=== PATIENT | female | born 1935 | race Caucasian/White ===

== ENCOUNTER → 2019-01-19 12:27 | Outpatient (CLI) | payer MEDICARE, OTHER, SELFPAY ==
--- NOTE | 2019-01-19 | DI.CT.S_ITS ---
PROCEDURE: CT UE LT WO CON INDICATIONS: LEFT SHOULDER OSTEOARTHRITES TECHNIQUE: Noncontrast 1-1.5 mm thick sections acquired from the acromioclavicular joint to the inferior scapula, with coronal and sagittal reformatting. COMPARISON: [facility], , SHOULDER MINIMUM 2 VIEW LEFT, 05/19/2017, 8:57. FINDINGS: Image quality: Diagnostic. Bones: No acute fracture, dislocation, or suspicious osseous lesion is evident involving the osseous structures of the left shoulder. There are severe degenerative changes of the glenohumeral joint with prominent joint space narrowing, subchondral sclerosis, subchondral cystic change, and bony remodeling, and prominent marginal osteophytes. There may be multiple loose intra-articular joint bodies. There moderate degenerative changes of the acromion clavicular joint. There likely is a glenohumeral joint effusion. The remainder of the imaged osseous structures of the included portions of the chest are age-appropriate. No displaced fractures or suspicious osseous lesions are evident. Soft tissues: No soft tissue masses or drainable fluid collections are identified. There is mild diffuse atrophy involving the left shoulder muscles. No axillary adenopathy is identified. The included portions of the chest demonstrate mild scarring within the lung apices. There appear to be multiple small mediastinal lymph nodes. No focal pulmonary consolidation is seen within the imaged upper lungs. IMPRESSION: 1. Severe degenerative changes of the left glenohumeral joint. No fractures. 2. Moderate degenerative changes of the left acromioclavicular joint. Dictated by: Elmer Butcher M.D. on 01/19/2019 at 15:05 Approved by: Elmer Butcher M.D. on 01/19/2019 at 15:17
== END ==
PROVIDERS: PCP Student in an Organized Health Care Education/Training Program; Visit Provider Orthopaedic Surgery
DX: M19.012 Primary osteoarthritis, left shoulder (principal)
CPT/HCPCS: 73200

== ENCOUNTER 2019-04-27 05:54 | Inpatient (IN) | payer MEDICARE, OTHER, SELFPAY ==
[2019-04-13 08:48] VITALS: BMI 21.9
[2019-04-27] VITALS (12 sets, daily range): BP systolic 117–157; BP diastolic 55–87; PULSE 63–98; RESP 12–20; TEMP 35.9–36.3; O2SAT 94–98; BMI 21.9
--- NOTE | 2019-04-27 06:00 | DI.RAD.S_ITS ---
PROCEDURE: XR SHOULDER LT 1V INDICATIONS: post op TECHNIQUE: One view of the shoulder was acquired. COMPARISON: [facility], , SHOULDER MINIMUM 2 VIEW LEFT, 05/19/2017, 8:57. FINDINGS: Expected immediate postoperative appearance, post left shoulder arthroplasty. IMPRESSION: Expected immediate postoperative appearance, post left shoulder arthroplasty. Dictated by: Lester Ortiz M.D. on 04/27/2019 at 10:43 Approved by: Lester Ortiz M.D. on 04/27/2019 at 10:44
[2019-04-27] MEDS: ACETAMINOPHEN 325 MG TABLET 975 MG PO ×3 (06:50→21:52)
[2019-04-27] MEDS: PREGABALIN 75 MG CAPSULE PO (06:50)
[2019-04-27] MEDS: CELECOXIB 200 MG CAPSULE PO (06:51)
[2019-04-27] MEDS: LACTATED RINGERS 1,000 ML 42 ML IV ×2 (07:00→09:45)
[2019-04-27] MEDS: MIDAZOLAM 2 MG/2 ML VIAL IV (07:29)
[2019-04-27] MEDS: fentaNYL 100 MCG/2 ML INJ IV (07:30)
--- NOTE | 2019-04-27 07:41 | SUR.PREOP ---
Block start time [0730] . Monitoring initiated and maintained throughout procedure. Oxygen and medications given per anesthesiologist instructions. Patient remained stable throughout procedure, no adverse reactions noted. Block end time [0739].
--- NOTE | 2019-04-27 07:51 | PM.PREOP ---
Pre-operative Note Interval Note History & Physical reviewed/Exam performed by Physician: Yes Changes to H&P: No
[2019-04-27] MEDS: CEFAZOLIN 2 GM/100 ML FROZ.PIGGY IV (07:55)
--- NOTE | 2019-04-27 08:32 | SUR.OPER ---
Beach chair with Linda/Theron shoulder positioner. Lower body on padded OR bed. Head in foam padded head cradle, secured with straps. Non-operative arm secured <90 degrees abduction. Pillow under knees. Safety belt at thigh. Cloth tape over blanket over lower legs.
[2019-04-27] MEDS: TRANEXAMIC ACID 1,000 MG VIAL 1000 MG INJ ×2 (08:37→09:26)
[2019-04-27] MEDS: BUPIVACAINE 0.5% W/ EPI (PF) VIAL 30 ML INJ (08:37)
[2019-04-27] MEDS: THROMBIN (RECOMBINANT) 5,000 UNIT VIAL 5000 UNIT TOP (08:37)
--- NOTE | 2019-04-27 10:08 | PM.OP.1 ---
Operative Date/Time/Diagnoses Date of procedure: 04/27/19 Time of procedure: 09:50 Pre-op diagnosis: Left shoulder osteoarthritis Post-op diagnosis: same Procedure & Clinicians Procedure: Left total shoulder replacement Same procedure as scheduled: Yes Indications: The patient has had progressively worsening left shoulder pain with radiographic changes consistent with arthritis. Non-operative management has failed and the patient has requested total shoulder replacement. The risks, benefits and alternatives to surgery were discussed with the patient prior to proceeding. Risks discussed included, but were not limited to, failure to relieve pain, stiffness, infection, nerve damage, deep venous thrombosis, pulmonary embolism, stroke, coma, heart attack, permanent paralysis and , as well as the potential need for eventual revision of the prosthetic. Surgeon: Maxwell Cortés Data Collection Interviewer: Doug Jaramillo Click Yes if Unassisted: No Anesthesia Type: General, Peripheral nerve block and Local Operative Notes Findings: Severe osteoarthritis of the left shoulder with flattening of the humeral head and a large inferior osteophyte on the humerus. Glenoid wear was fairly concentric. Closure Type: primary Specimen(s): none sent Prosthetic devices, grafts, tissues, transplants, or devices: Implants used in this procedure were manufactured by the [employer] and included an Altivate short stemmed total shoulder system with a size 42 mm pegged all polyethylene E plus glenoid, a 12 mm short stem, a neutral neck and a 42 mm x 16 mm offset humeral head. Applied: drain(s) and implant(s) Estimated Blood Loss (mL): 200 Blood products transfused: none Procedure in detail: The patient was seen in the pre-operative area, where the patient identified the left shoulder as the operative site and this was marked with my initials. The patient received pre-operative antibiotics, underwent an interscalene block, and was taken to the operating room and placed on the operative table in the supine position. After satisfactory anesthesia, a full ?time out? was performed. The patient was repositioned in the ?beach chair? position using a dedicated positioner. All pressure points were well padded, and the knees were slightly bent to prevent tension on the sciatic nerves. The left arm was prepared from the fingers to the base of the neck with ChloroPrep in the usual fashion and draped through sterile drapes. An approximately 12 cm incision was created, starting at the clavicle above the coracoid process and extended towards the deltoid insertion. The deltopectoral interval was used to access the shoulder. The cephalic vein was taken medially. A self retaining retractor was placed. The upper centimeter of the pectoralis major tendon was released. The ?three sisters? were identified and cauterized. The axillary nerve was palpated and protected throughout the case. The biceps was released from its groove and tenodesed over the top of the pectoralis major tendon. The subscapularis was released from the lesser tuberosity with a subscapularis peel and tagged for later repair. The shoulder was dislocated and a cutting guide was used for the proximal humeral osteotomy in 30 degrees of retroversion. A starter Reamer was used followed by the cylindrical reamers. This continued in larger sizes in till cortical bite was achieved. Sequential broaching was then performed until a line to line fit with the Reamer occurred. A proximal humeral protector was then placed. We then removed the self-retaining retractor and placed retractors to access the glenoid. The subscapularis was released with a ?360 degree release? with care being taken to protect the axillary nerve with the inferior portion of this procedure. The remnant of labrum and biceps stump were removed. The appropriate size reamer was chosen with the glenoid sizer, and the guide pin placed. The glenoid was appropriately reamed. The guide for the peripheral holes was used and the center hole enlarged. The trial glenoid was placed with good stability. We then cemented the final implant into place after irrigating the peg holes and drying them with thrombin-soaked Gelfoam. We returned our attention to the humerus, a trial humeral head was applied and a trial reduction performed. Stability was checked with 50% posterior translation with spontaneous reduction, 45? external rotation at the side with the subscapularis held on the repaired position and approximately 70? of internal rotation in the ?scarecrow position?. This was felt to be satisfactory and the appropriate implants were opened. Five holes were drilled along the humeral osteotomy and #2 TiCron sutures placed for eventual subscapularis repair. The humeral prosthetic was impacted into the humerus. The humeral head was applied when the stem was still slightly proud and impacted to both seat the head and fully seat the stem. The joint was relocated one final time. The joint was irrigated and the subscapularis repaired to the previously placed sutures using Rodrick-Jose sutures. The top of the subscapularis was closed to the leading edge of the supraspinatus with a figure of 8 #2 TiCron to close the rotator interval. A deep drain was placed and brought out supero-laterally. The deltopectoral interval was closed with interrupted 0 Vicryl. The subcutaneous layer was closed with 3-0 Vicryl, and the skin with a running 3-0 V-Lock suture and SteriStrips. An Aquacel Ag dressing was applied, the patient?s arm was placed in a sling, and the patient was taken to recovery having tolerated the procedure well. Complications: none Post-operative Condition: stable Disposition: PACU Plan for aftercare: The patient will be maintained on a standard total shoulder replacement protocol with passive range of motion limited to 90 degrees forward flexion, 0 degrees external rotation at the side, 0 degrees abduction and internal rotation to the body. The patient will receive aspirin and sequential compression devices for DVT prophylaxis. The patient will be discharged home when safe for the home environment, likely tomorrow.
--- NOTE | 2019-04-27 11:43 | CM.IDA ---
Discharge Planning/Care Management CM Discharge Assessment Start: 04/27/19 11:34 Freq: Status: Active Protocol: Document 04/27/19 11:34 MERLINE (Rec: 04/27/19 11:43 MERLINE [id number]) Discharge Planning Assessment Assigned Staff Occupational Therapist RIGOBERTO Caraballo DPOA/Assigned Designee Name Ray Godinez, spouse Contact Information [phone], Advance Directives? Yes Advance Directives on File No History Provided By Medical Record Prior Living Arrangements House Household Members spouse Independent with ADL's Yes Is patient alert and oriented? Yes Barriers to Discharge No Comment Per chart review, it is expected that pt will be able to return home w/family to assist upon DC. Pt is off the floor today for surgery. This [employer] will need to assess POD#1 once pt has worked w/therapy team to determine any DC needs Discharge Plan Home Transportation Arrangement Family Referrals Initiated None needed Review Status In Process
[2019-04-27] MEDS: LACTATED RINGERS 1,000 ML 125 ML IV ×2 (11:48→19:41)
--- NOTE | 2019-04-27 13:16 | SUR.PHASEI ---
Late entry: Report to MYNOR Raines. Effective block to left shoulder. Pt denies pain. Tolerated ice chips. denies n/v. Vital signs stable. Pt transferred to room 219 in stable condition
--- NOTE | 2019-04-27 13:40 | PT.IIE ---
Current Diagnoses Primary osteoarthritis, left shoulder (04/27/19) Surgery Performed Operation Date: 04/27/19 07:45 Actual Procedures p Total Shoulder Arthroplasty(Left) - Maxwell Cortés MD Surgical History (Last Updated 04/13/19 @ 08:53 by Ese Ruiz, RN) History of colonoscopy (Acute) Hx of bilateral cataract extraction (Acute ~11/2017) Hx of tonsillectomy (Acute) Medical History (Last Updated 04/13/19 @ 09:09 by Ese Ruiz RN) Arthritis (Acute) Bilateral shoulder pain (Acute) DJD (degenerative joint disease) (Acute) History of recurrent UTIs (Acute) HLD (hyperlipidemia) (Acute) Hyperglycemia, unspecified (Acute) Iron deficiency (Acute) Osteopenia (Acute) Physical Therapy Inpatient Evaluation/Re-Eval M1 PT/OT-IP Prior Functional Status Start: 04/27/19 14:58 Freq: NEEDED Status: Active Protocol: Document 04/27/19 13:40 AB (Rec: 04/27/19 15:35 AB [id number]) Medical Review Prior Functional Status Medical History Reviewed Yes Communication able to make needs known Mobility and Gait pt stated that she is independent with all mobilities and ambualtion wtihout AD Prior Functional Level (Other details) pt stated that she walks 2-4 miles daily Social History Household Members spouse Living Arrangements House Number of Floors (Floors) Two Floors Number of Stairs To Enter/Railing? 4 steps to enter with bilateral rails has 9 steps to bedroom level with L rail but stated that she can stay on the main level of the house if needed. 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[place] [id number] PT-IP Current Condition Start: 04/27/19 14:58 Freq: NEEDED Status: Active Protocol: Document 04/27/19 13:40 AB (Rec: 04/27/19 15:35 AB [id number]) Physical Therapy Current Condition Current Condition Evaluation Date 04/27/19 Treatment Diagnosis s/p L TSA; difficulty in walking Onset Date 04/27/19 Precautions Shoulder Precautions Sling,PROM,Internal Rotation to Body,No External Rotation, No Abduction,Forward Flexion to 90 degrees,Pendulums Weight Bearing Status Weight Bearing Status Non-Weight Bearing Allowed Weight Bearing Amount (enter % LUE NWB or #) (%) M3 PT-IP Subjective Start: 04/27/19 14:58 Freq: NEEDED Status: Active Protocol: Document 04/27/19 13:40 AB (Rec: 04/27/19 15:35 AB [id number]) Subjective Physical Therapy Visit Type Type Initial Evaluation Visit Start Time 13:40 Visit Stop Time 14:28 Total Visit Minutes 48 Number of LAND CHECKER Visits 0 Physical Therapy Visit Comments Patient Comments pt agreeable to do PT Therapy Pain Assessment Pain Present Pain Present Denied Pain M4 PT-IP Mobility and Gait Start: 04/27/19 14:58 Freq: NEEDED Status: Active Protocol: Document 04/27/19 13:40 AB (Rec: 04/27/19 15:35 AB [id number]) PT-Bed Mobility Assessment Supine to Sit Supine to Sit Standby Assistance Sit to Supine Sit to Supine Standby Assistance Scooting Scooting to Edge of Bed Standby Assistance PT-Transfer Assessment Sit to and From Stand Sit to and from Stand Contact Guard Assistance,1 Person Assistance,Use of Upper Extremities Equipment Transfer Assistive Device None,Gait Belt Transfers Transfer Destination Toilet Transfer Technique ambulated without AD Transfer Ability Level of Assist Contact Guard Assistance,1 Person Assistance Comments Mobility Comments spouse present. educated pt and spouse regarding sling management, shoulder precautions and pendulum. pt still unable to feel LUE and has no motor control, therefore, PT opted not to do pendulum exercises at this time but pt completed PROM on L elbow and hand. educated pt and spouse on how to don/doff sling. Spouse was able to assist pt with the sling. pt completed sit to stand from the bed CGA and ambulation without AD CGA to the toilet and was able to walk from the toilet towards the sink without AD CGA and maintained standing balance SBA to complete handwashing. pt requested to go back to the bed. completed sit to supine SBA. positioned pt on the chair. call light and table placed within reach. Gait Assessment Gait Gait Assistance Required: Contact Guard Assist Distance (Feet) 30 Able to Maintain Weight Bearing Status Yes During Gait Assistive Devices Assistive Device None,Gait Belt Orthotic/Prosthetic Devices or Brace: No Gait Deviations General Gait Pattern Antalgic Factors Limiting Gait Function Factors Limiting Gait Function Decreased Activity Tolerance, Decreased Sensation,Limited Range of Motion,Poor Balance, Poor Safety Awareness Comments Gait Comments pt agreed to ambulate more in room and completed ~ 30 ft CGA without AD. cues for safety PT-Balance Assessment Sitting Balance and Reactions Static Sitting Balance Ability Good Dynamic Sitting Balance Ability Good Standing Balance and Reactions Static Standing Balance Ability Fair Dynamic Standing Balance Ability Fair Device Used without AD M5 PT-IP Objective Assessments Start: 04/27/19 14:58 Freq: NEEDED Status: Active Protocol: Document 04/27/19 13:40 AB (Rec: 04/27/19 15:35 AB [id number]) Orientation Orientation/Cognition Level of Alertness Alert Orientation Name,Place,Situation Safety Awareness Decreased Safety Awareness Memory Description No Deficits Noted Gross Range of Motion Lower Extremity ROM Assessment Within Functional Limits Strength Lower Extremity Strength Assessment Within Functional Limits Sensation Assessment Sensation Gross Sensation Left UE Impaired Sensation Description Numbness Comments Sensation Comments pt can move her R fingers/ thumb but unable to feel or move her elbow M6 PT-IP Treatment Start: 04/27/19 14:58 Freq: NEEDED Status: Active Protocol: Document 04/27/19 13:40 AB (Rec: 04/27/19 15:35 AB [id number]) Physical Therapy Treatment Education Education Provided Precautions,Weight Bearing Status,Post-Op Packet,Safety M7 PT-IP Assessment and Plan Start: 04/27/19 14:58 Freq: NEEDED Status: Active Protocol: Document 04/27/19 13:40 AB (Rec: 04/27/19 15:35 AB [id number]) PT Summary Assessment and Plan Potential Rehabilitation Potential Good Status of Condition at Evaluation Evolving Summary Impairments Pain,ROM,Strength,Balance, Coordination,Sensation,Tone, Cognition,Bed Mobility, Transfers,Gait,Activity Tolerance Assessment Summary pt requiring CGA with mobility and plans to go home with spouse to assist her. further caregiver training will be conducted as well as stair climbing. spouse stated that he will be in around 1030 am tomorrow 04/28/19. Goals Bed Mobility Goal Independent Transfer Goal Independent Gait Goal Independent Gait Distance 200 Other Goals up/down 4 steps 1 rail up/down 9 steps L rail ascending Days to Meet Goals 5 Frequency of Treatment Frequency Of Treatment Twice a Day Treatment Plan Physical Therapy Treatment Plan Bed Mobility Training,Transfer Training,Gait Training, Therapeutic Exercise,Balance Retraining,Post Op Education, Discharge Planning,Hot or Cold Pack,Neuromuscular Re-ed, Coordination Retraining,Manual Therapy Other Recommendations and Next Treatment caregiver trainin am Recommendations To Nursing Amount of Assist Needed 1 Person Assist Discharge Recommendations PT Discharge Recommendations Home with Assistance, Outpatient PT
--- NOTE | 2019-04-27 14:11 | PC.NURSE ---
Pt brought to the floor via PACU at approx. 1115. She is A & O x 4, RA 95%. She reports some numbness to her left arm. CMS+ Radial pulse+. Left arm is secured in a sling. Hemovac in place draining minimal amount of serosanguinous drainage. Pt has been oriented to the room. Call light is within reach. Her supportive is at the bedside.
[2019-04-27] MEDS: DOCUSATE 100 MG CAPSULE PO (21:52)
[2019-04-27] MEDS: ASPIRIN EC 81 MG TABLET PO (21:52)
--- NOTE | 2019-04-28 02:01 | PC.NURSE ---
Addendum entered by Radha Brothers R.N. 04/28/19 06:41: Hemovac became disconnected so blood on sling; patient provided with new sling. Hemovac reconnected and appears to have suction. Had 60cc from hemovac this shift. Addendum entered by Radha Brothers R.N. 04/28/19 04:39: Complains of 4/10 left shoulder pain at 0411 and was medicated with Oxycodone and ice applied. Up to bathroom with 1 assist. Original Note: Patient is alert and oriented. Breath sounds CTA with RA sat of 96%. HRR. Denies nausea. BT present but denies passing flatus as yet. Has voided and denies dysuria, frequency or urgency. Left UE in sling. Aquacel dressing is CDI. Numbness has resolved and CMS is intact. Does state she is starting to feel some tenderness in left shoulder but declines need for pain medication at this time; ice applied for comfort. Hemovac is intact and compressed. Able to move self in bed. Is assisted when out of bed. Fall risk score is moderate; bed alarm is activated. Wearing bilateral calf SCD's.
[2019-04-28 02:02] VITALS: BP 108/64; PULSE 82; RESP 15; TEMP 36.9; O2SAT 96
[2019-04-28 03:59] VITALS: BP 130/71; PULSE 72; RESP 15; TEMP 36.7; O2SAT 96
[2019-04-28] MEDS: OXYCODONE IR 5 MG TABLET PO ×2 (04:11→08:14)
[2019-04-28 05:14] LABS: Hematocrit 31.1 % (36-46); Hemoglobin 10.6 g/dL (12.0-16.0); Mean Corpuscular HGB Conc 34.1 % (30-36); Mean Corpuscular Hemoglobin 30.7 PG (26-34); Platelet Count 269 X10^3/uL (150-400); Red Blood Cell Count 3.45 X10^6/uL (4.0-5.2); Red Cell Distribution Width 12.9 % (11.6-14.8); White Blood Cell Count 9.5 X10^3/uL (4.5-11.0)
[2019-04-28] MEDS: DOCUSATE 100 MG CAPSULE PO (08:13)
[2019-04-28] MEDS: ACETAMINOPHEN 325 MG TABLET 975 MG PO (08:14)
[2019-04-28] MEDS: ASPIRIN EC 81 MG TABLET PO (08:14)
[2019-04-28 09:00] VITALS: BP 114/57; PULSE 69; RESP 16; TEMP 36.4; O2SAT 95
--- NOTE | 2019-04-28 10:13 | PM.DS.1 ---
History of Present Illness History of Present Illness Date Patient Seen: 04/28/19 Time Patient Seen: 10:13 Chief complaint: [id number] Narrative: The history and physical is contained in the chart previously completed note. Please refer to that note for this information. Discharge Providers Provider Date of admission: 04/27/19 05:54 Discharge Date: 04/28/19 Primary care physician: Sarah Thompson PA-C Consults: 04/27/19 11:12 Consult to Discharge Planning Routine Comment: Consult to Physical Therapy Evaluate & Treat Comment: PROM, Pendulums, 90 FF, 0 ER, 0 Abd, IR to body Physician Instructions: Evaluate and Treat Discharge provider: Maxwell Cortés MD Summary Hospital Course Discharge Diagnosis: 1. Left shoulder osteoarthritis 2. Mild post hemorrhagic anemia Hospital Course: The patient was admitted to the hospital and taken directly to the operating room on April 27, 2019. She underwent a left total shoulder replacement without complications. On postoperative day 1 she was medically stable and anxious to be discharged home. Status at Discharge Cognitive/behavioral status at discharge: oriented Functional status at discharge: independent ambulation Overall status at discharge: patient is progressing back to baseline Time Spent with Patient Time spent: Less than 30 minutes Exam Vital Signs (past 8 hours): - 04/28/19 03:59 04/28/19 09:00 Temperature 98.1 F 97.6 F Pulse Rate 72 69 Respiratory Rate 15 16 Blood Pressure 130/71 114/57 L Pulse Oximetry 96 95 Oxygen Delivery Method Room Air Oxygen Flow Rate 0 Narrative Exam Narrative: Left shoulder wound is dressed with no drainage on the bandage. Light touch is intact in the radial, ulnar, median, muscular cutaneous and axillary nerve distributions. She can extend her thumb, abduct her thumb, abduct her fingers and can fire her biceps and deltoid. Objective Labs Result Diagrams: 04/28/19 04:40 Labs: Laboratory Results - last 24 hr 04/28/19 04:40 WBC 9.5 RBC 3.45 L Hgb 10.6 L Hct 31.1 L MCV 90.0 MCH 30.7 MCHC 34.1 RDW 12.9 Plt Count 269 Discharge Plan Discharge Plan Patient Disposition: Home Discharge orders & Medications Prescriptions: New acetaminophen 325 mg Tablet 975 mg PO TID 30 Days Qty: 270 RF: 0 aspirin 81 mg Tablet,Delayed Release (Dr/Ec) 81 mg PO BID 42 Days Qty: 84 RF: 0 oxycodone 5 mg Tablet 5 mg PO Q3HR PRN (Reason: Pain, Moderate (4-6)) Qty: 60 RF: 0 Continued naproxen sodium [Aleve] 220 mg Capsule 220 mg PO SEEINSTR RF: 0 Discontinued aspirin 81 MG tablet,delayed release (DR/EC) 81 mg PO SEEINSTR Qty: 0 RF: 0 Follow up/Referrals: Sarah Thompson PA-C [Primary Care Provider] - Maxwell Cortés MD [Physician] - 2 Weeks Discharge Health Status Multidrug resistant organism: No MDRO Diet/Activity/Treatments Diet: Diet as Tolerated and Regular Activity: You may use your left hand in front of your body below shoulder level. Cold/Heat Therapy: Apply ice to the left shoulder for 15 minutes every hour as needed for pain relief. Other treatments: Continue to wear the sling. You may remove the sling to take a shower. Skin/Wound/Dressing Care Report to your healthcare provider any signs of infection, such as:: chills, fever, night sweats, increased pain, unusual drainage and unusual redness Dressing: Leave the dressing in place until your follow-up. You may shower with the dressing in place. If the center strip of the dressing becomes saturated with either water or blood, please call the office to have it changed. Visit Report/Discharge Packet Instructions: How to Use a Sling, DI for Constipation, How to Prevent Falls, DI for Shoulder Replacement Stand Alone Forms: Surgery Discharge Discharge Data Primary Care Provider: Sarah Thompson Quality VTE Deep Vein Thrombosis/Pulmonary Embolism Present on Admission: No
--- NOTE | 2019-04-28 10:49 | PT.IPTN ---
Addendum entered and electronically signed by Anne Beltran PTA 04/28/19 11:24: Pt was sitting EOB with nursing and in room end of tx. Call light and all needs within reach. Original Note: Current Diagnoses Primary osteoarthritis, left shoulder (04/27/19) Surgery Performed Operation Date: 04/27/19 07:45 Actual Procedures p Total Shoulder Arthroplasty(Left) - Maxwell Cortés MD Physical Therapy Treatment Note M2 PT-IP Current Condition Start: 04/27/19 14:58 Freq: NEEDED Status: Active Protocol: Document 04/27/19 13:40 AB (Rec: 04/27/19 15:35 AB [id number]) Physical Therapy Current Condition Current Condition Evaluation Date 04/27/19 Treatment Diagnosis s/p L TSA; difficulty in walking Onset Date 04/27/19 Precautions Shoulder Precautions Sling,PROM,Internal Rotation to Body,No External Rotation, No Abduction,Forward Flexion to 90 degrees,Pendulums Weight Bearing Status Weight Bearing Status Non-Weight Bearing Allowed Weight Bearing Amount (enter % LUE NWB or #) (%) M3 PT-IP Subjective Start: 04/27/19 14:58 Freq: NEEDED Status: Active Protocol: Document 04/28/19 10:34 SP (Rec: 04/28/19 11:23 SP [id number]) Subjective Physical Therapy Visit Type Type Treatment Note Visit Start Time 10:34 Visit Stop Time 10:49 Total Visit Minutes 15 Number of DESULPHURING OPERATOR Visits 1 Physical Therapy Visit Comments Patient Comments pt agreed to work with PT. Patient Goals Trial stairs to practice entering her home and return home today with her . Therapy Pain Assessment Pain When Pain Assessed At Rest Pain Present Pain Present Pain Reported Location Left Shoulder Intensity 3 Scale Used Numeric (1 - 10) Description Aching M4 PT-IP Mobility and Gait Start: 04/27/19 14:58 Freq: NEEDED Status: Active Protocol: Document 04/28/19 10:34 SP (Rec: 04/28/19 11:23 SP [id number]) PT-Bed Mobility Assessment Rolling Type of Rolling Roll to Right Level of Assist Standby Assistance Supine to Sit Supine to Sit Standby Assistance Sit to Supine Sit to Supine Standby Assistance Scooting Scooting to Edge of Bed Standby Assistance PT-Transfer Assessment Sit to and From Stand Sit to and from Stand Standby Assistance,Use of Upper Extremities Equipment Transfer Assistive Device None,Gait Belt Transfers Transfer Destination Bed Transfer Technique Pt ambulate without AD. Transfer Ability Level of Assist Standby Assistance Comments Mobility Comments Spouse present, complete caregiver training including bed mobility, transfers, sling mgt, pendulums/elbow AAROM. Cued spouse as needed for sling strap mgt. Gait Assessment Gait Gait Assistance Required: Standby Assistance Distance (Feet) 414 Able to Maintain Weight Bearing Status Yes During Gait Assistive Devices Assistive Device None,Gait Belt Orthotic/Prosthetic Devices or Brace: No Gait Deviations General Gait Pattern Antalgic Factors Limiting Gait Function Factors Limiting Gait Function Decreased Activity Tolerance, Decreased Sensation,Limited Range of Motion,Poor Balance, Poor Safety Awareness Comments Gait Comments Pt agreed to ambulate hallway distances this am approx 414 ft SBA without AD with spouse, cued for slower pacing for energy conservation and safety . Stair Climbing Assessment Evaluation Level of Assist On Stairs Standby Assistance Devices Stair Climbing Assistive Devices Left Railing,Right Railing Technique/Endurance Stair Climbing Direction Ascend and Descend Stair Climbing Technique Step Over Step Number of Steps Climbed 3 Stair Climbing Set # Repetitions (reps) 2 Comments Stair Climbing Comments Pt completed stair management using RHR ascend, LHR descend (B at home to use) x 3 steps, LHR ascend and descend to assimulate home environment with spouse SBA step over step . No LOB or deviation, cued for slow pacing for safety. PT-Balance Assessment Sitting Balance and Reactions Static Sitting Balance Ability Good Dynamic Sitting Balance Ability Good Standing Balance and Reactions Static Standing Balance Ability Fair Dynamic Standing Balance Ability Fair Device Used without AD M5 PT-IP Objective Assessments Start: 04/27/19 14:58 Freq: NEEDED Status: Active Protocol: Document 04/27/19 13:40 AB (Rec: 04/27/19 15:35 AB [id number]) Orientation Orientation/Cognition Level of Alertness Alert Orientation Name,Place,Situation Safety Awareness Decreased Safety Awareness Memory Description No Deficits Noted Gross Range of Motion Lower Extremity ROM Assessment Within Functional Limits Strength Lower Extremity Strength Assessment Within Functional Limits Sensation Assessment Sensation Gross Sensation Left UE Impaired Sensation Description Numbness Comments Sensation Comments pt can move her R fingers/ thumb but unable to feel or move her elbow M6 PT-IP Treatment Start: 04/27/19 14:58 Freq: NEEDED Status: Active Protocol: Document 04/28/19 10:34 SP (Rec: 04/28/19 11:23 SP [id number]) Physical Therapy Treatment Exercises Exercises Shoulder Pendulums,Elbow Flexion/Extension,Wrist ROM, Hand ROM Education Education Provided Precautions,Weight Bearing Status,Post-Op Packet,Safety M7 PT-IP Assessment and Plan Start: 04/27/19 14:58 Freq: NEEDED Status: Active Protocol: Document 04/28/19 10:34 SP (Rec: 04/28/19 11:23 SP [id number]) PT Summary Assessment and Plan Potential Rehabilitation Potential Good Status of Condition at Evaluation Evolving Summary Impairments Pain,ROM,Strength,Balance, Coordination,Sensation,Tone, Cognition,Bed Mobility, Transfers,Gait,Activity Tolerance Assessment Summary pt requiring SBA with mobility and plans to go home with spouse to assist her. caregiver training training completed today including: bed mobility, transfer, gait, stair management and sling management and review HEP. Pt may go home when medically stable. May require home health PT to improve ROM, strength and independence. Pt plans to go home with spouse and will be able to assist patient at home. Goals Bed Mobility Goal Independent Transfer Goal Independent Gait Goal Independent Gait Distance 200 Other Goals up/down 4 steps 1 rail up/down 9 steps L rail ascending Days to Meet Goals 5 Frequency of Treatment Frequency Of Treatment Twice a Day Treatment Plan Physical Therapy Treatment Plan Bed Mobility Training,Transfer Training,Gait Training, Therapeutic Exercise,Balance Retraining,Post Op Education, Discharge Planning,Hot or Cold Pack,Neuromuscular Re-ed, Coordination Retraining,Manual Therapy Other Recommendations and Next Treatment caregiver trainin am Recommendations To Nursing Amount of Assist Needed 1 Person Assist Discharge Recommendations PT Discharge Recommendations Home with Assistance, Outpatient PT
--- NOTE | 2019-04-28 11:13 | PC.NURSE ---
Drain removed per MD order, patient tolerated well. Gauze with tegaderm placed to site.
--- NOTE | 2019-04-28 14:18 | PC.NURSE ---
Discharge: feels ready to d/c home. Spouse here for teaching. Seen by PT and they gave both pt and spouse d/c instructions, shown how to remove and replace sling. What she can and can't do after a total shoulder. Pt seen by md and he gave d/c instructions. Reviewed d/c packet w/pt and spouse. Discussed wound care. Already has rx, questions answered. Pt d/c home via auto w/spouse.
== END 2019-04-28 11:50 | disposition home or self-care (01) | DRG 483 ==
PROVIDERS: Admitting Provider Orthopaedic Surgery; PCP Student in an Organized Health Care Education/Training Program; Visit Provider Orthopaedic Surgery
PROC: 0RRK0JZ Replacement of Left Shoulder Joint with Synthetic Substitute, Open Approach (ICD-10-PCS; CPT 23472; principal; 2019-04-27 07:45)
DX: M19.012 Primary osteoarthritis, left shoulder (principal); M25.712 Osteophyte, left shoulder
CPT/HCPCS: 36415; 73020; 85027; 97116; 97162; 97530; C1776; J0330; J0690; J1100; J2250; J2405; J2704; J3010